=== PATIENT | male | born 1980 | race Caucasian/White ===

== ENCOUNTER 2021-05-20 16:45 | Emergency (ER) | payer OTHER ==
[~2021-05-20] VITALS: Ht 170.2 cm; Wt 104.0 kg
[2021-05-20 16:52] VITALS: BP 142/101
[2021-05-20] MEDS ORDERED: IBUPROFEN 600MG TABLET PO ONE (17:30)
== END 2021-05-20 17:31 | disposition left against medical advice (07) ==
LOC: ER 16:45
DX: Z20.822 Contact with and (suspected) exposure to COVID-19 (principal); I10 Essential (primary) hypertension
CPT/HCPCS: 93005; 99283